=== PATIENT | male | born 1980 | race Caucasian/White ===

== ENCOUNTER 2020-11-28 07:55 | Emergency (ER) | payer SELFPAY ==
[~2020-11-28] VITALS: Ht 185.4 cm; Wt 146.5 kg
[2020-11-28 08:06] VITALS: BP 142/87
== END 2020-11-28 09:55 | disposition left against medical advice (07) ==
LOC: M ED 07:55
DX: Z53.21 Procedure and treatment not carried out due to patient leaving prior to being seen by health care provider (principal)

== ENCOUNTER 2020-11-28 10:29 | Emergency (ER) | payer OTHER, SELFPAY ==
[~2020-11-28] VITALS: Ht 185.4 cm; Wt 146.2 kg
--- NOTE | 2020-11-28 11:27 | REP ---
INDICATION: diaphoresis. COMPARISON: None. TECHNIQUE: Single portable AP view of the chest was performed. FINDINGS: There is no acute infiltrate or pulmonary edema. Lungs are clear. The heart is not significantly enlarged. The mediastinal silhouette is unremarkable. The visualized osseous structures are intact.Metallic plate and screws are seen in the right clavicle. IMPRESSION: No acute pulmonary disease. <Electronically signed by Ace Naidu > 11/28/20 [id number]
[2020-11-28 11:32] LABS: BASO % 0.3 % (0.0-1.0); EOS % 0.5 % (0.0-3.0); HEMATOCRIT 45.9 % (42.0-52.0); HEMOGLOBIN 15.8 g/dl (13.5-17.5); LYMPH # 0.3 10^3/uL (1.5-5.0); LYMPH % 4.8 % (24.0-44.0); MEAN CORPUSCULAR HEMOGLOBIN 30.4 pg (27.0-33.0); MEAN CORPUSCULAR HGB CONC 34.4 g/dl (32.0-36.5); MEAN CORPUSCULAR VOLUME 88.4 fl (80.0-96.0); MONO # 0.8 10^3/uL (0.0-0.8); MONO % 13.1 % (2.0-8.0); NEUTROPHILS # 4.7 10^3/uL (1.5-8.5); NEUTROPHILS % 80.6 % (36.0-66.0); PLATELET COUNT, AUTOMATED 159 10^3/uL (150-450); RED BLOOD COUNT 5.19 10^6/uL (4.30-6.10); WHITE BLOOD COUNT 5.8 10^3/uL (4.0-10.0)
[2020-11-28 12:03] LABS: AMPHETAMINES LEVEL URINE NEGATIVE (NEGATIVE); BARBITURATES URINE NEGATIVE (NEGATIVE); BENZODIAZEPINES URINE NEGATIVE (NEGATIVE); CANNABINOIDS URINE NEGATIVE (NEGATIVE); COCAINE METABOLITE URINE NEGATIVE (NEGATIVE); METHADONE URINE NEGATIVE (NEGATIVE); OPIATES URINE POSITIVE (NEGATIVE); PHENCYCLIDINE URINE NEGATIVE (NEGATIVE)
[2020-11-28 12:09] LABS: ALBUMIN 3.4 GM/DL (3.2-5.2); ALT/SGPT 50 U/L (12-78); BILIRUBIN,DIRECT < 0.1 MG/DL (0.0-0.2); BILIRUBIN,TOTAL 0.4 MG/DL (0.2-1.0); BLOOD UREA NITROGEN 12 MG/DL (7-18); CALCIUM LEVEL 8.6 MG/DL (8.5-10.1); CARBON DIOXIDE LEVEL 26 MEQ/L (21-32); CHLORIDE LEVEL 103 MEQ/L (98-107); CK-MB VALUE MASS 2.1 NG/ML (<3.6); CPK CREATINE PHOSPHOKINASE 133 U/L (39-308); FREE T4 0.95 NG/DL (0.76-1.46); GLOMERULAR FILTRATION RATE > 60.0 (>60); GLUCOSE, FASTING 138 MG/DL (70-100); LIPASE 62 U/L (73-393); MB/CK RELATIVE INDEX 1.58 (< OR =4); POTASSIUM SERUM 4.1 MEQ/L (3.5-5.1); SODIUM LEVEL 136 MEQ/L (136-145); THYROID STIMULATING HORMONE 0.786 uIU/ML (0.358-3.740); TOTAL PROTEIN 7.1 GM/DL (6.4-8.2); TROPONIN I < 0.02 NG/ML (< 0.10)
[2020-11-28] MEDS ORDERED: HOME MED LIST COMPLETE! XX SCH (13:55)
[2020-11-28] MEDS ORDERED: ACETAMINOPHEN TAB 650MG DOSE (2X325MG) PO ONE (14:00)
[2020-11-28 15:15] VITALS: BP 123/85
--- NOTE | 2020-12-01 13:53 | ECGEPIP ---
[facility] - ED Test Date: 2020-11-28 Pat Name: ALEXY NORRIS Department: Room: - Gender: Male Neonatal Intensive Care Unit Nurse: AMRITA MARTINEZ : 1980 Requested By: ANNE-MARIE Miranda Order Number: [id number] Reading MD: Osiris Jhaveri Measurements Intervals Otto Rate: 80 P: 14 LA: 158 QRS: 4 QRSD: 98 T: 0 QT: 360 QTc: 415 Interpretive Statements Normal sinus rhythm baseline artifact may affect interpretation NSTTW abnormalities No prior Electronically Signed on 12-01-2020 13:53:13 EDT by Osiris Jhaveri
== END 2020-11-28 15:53 | disposition home or self-care (01) ==
LOC: M ED 10:29
DX: U07.1 COVID-19 (principal)

== ENCOUNTER 2020-11-28 16:00 | Outpatient (CLI) | payer OTHER ==
[2020-11-28] VITALS (10 sets, daily range): BP systolic 112–133; BP diastolic 63–83
--- NOTE | 2020-11-28 14:49 | HPEPDOC ---
[facility] Medical History & Physical Date of Admission Nov 28, 2020 Date of Service: Nov 28, 2020 History and Physical CHIEF COMPLAINT: "Not feeling good" HISTORY OF PRESENT ILLNESS: 40-year-old male with no reported past medical history presented to emergency department with complaints of malaise and loose stool. His symptoms began this morning with sudden onset. There has been no blood in the stool or darkening of stool color; reports only having 1 bowel movement. Reports mild abdominal pain that is non-radiational, could not identify specific location. In the emergency department he was noted to be Covid positive. He does not recollect any possible exposure. He has not traveled outside the state and denied sick contacts. He reports he was at the hotel with his coworkers laying down [place], but no other coworkers that he is aware of have tested positive. He has not been vaccinated. In the emergency department patient was saturating at 96% on room air, and had no evidence of accessory muscle use. At this junction, denies shortness of breath, chest pain, [place], vomiting, and problems with urination. PAST MEDICAL HISTORY: 1. Malignant hypertension PAST SURGICAL HISTORY: 1. Clavicle and right knee SOCIAL HISTORY: Lives at home with his and children. Denies smoking, drinking, and use of recreational drug use. REVIEW OF SYSTEMS: 10 point review of system was negative except for what is noted in the HPI HOME MEDICATIONS: Please see below. PHYSICAL EXAMINATION: General: Lying in bed, no acute distress Head/Neck/Throat: Trachea midline, mucous membranes moist Eyes: Sclera anicteric, no erythema or discharge appreciated bilateral Thorax: Normal respiratory effort on room air, lungs clear to auscultation bilaterally, no wheezes/rales/rhonchi Cardiovascular: Normal rate, regular rhythm, normal S1, S2; no S3, S4, rubs/gallops/murmurs Abdomen: Bowel sounds present, soft/nontender/nondistended Genitourinary: No CVA tenderness, no Simental in place Musculoskeletal: Moving all extremities, no edema Skin: Warm, dry Neurologic: AAOx3, speech fluent and goal-directed, no focal deficits, grossly intact LABORATORY DATA: See below. ASSESSMENT/PLAN: #Covid positive -Patient meets criteria for covid monoclonal antibodies. Risks and benefits have been explained to him, which he accepts. Consent obtained and in chart. -Appropriate precautions to be taken at home were also explained to him. He reports he has a safe place for isolation in his house. He was encouraged to return to the emergency room department if his clinical status was to change. Home Medications No Active Prescriptions or Reported Meds Allergies Coded Allergies: No Known Drug Allergies (Verified Allergy, Unknown, 11/28/20) A-FIB/CHADSVASC A-FIB History Current/History of A-Fib/PAF?: No ETHEL WILSON M.D. Nov 28, 2020 14:49
[~2020-11-28 16:00] MED LIST: ALBUTEROL 90 MCG/ACT 8GM HFA INHALER INH PRN; ALBUTEROL SULFATE 2.5 MG/0.5 ML INH NEB SOLN INH PRN; CASIRIVIMAB/IMDEVIMAB 1,200 MG in NS 250 ML IV ONE; EPINEPHrine INJ 1 MG/ML 1ML AMP IM PRN; NS 1,000 ML IV SCH; diphenhydrAMINE 50MG/ML VIAL (J1200) IV PRN; methylPREDNISolone 125MG 2ML VIAL IV PRN
== END 2020-11-28 19:41 | disposition home or self-care (01) ==
LOC: M OPCLI4PR 16:00 → M ICU 16:00 → M OPCLI4PR 19:41
PROVIDERS: ATTEND Internal Medicine
DX: U07.1 COVID-19 (principal)